=== PATIENT | female | born 1985 | race Native Hawaiian/Other Pacific Islander ===

== ENCOUNTER 2020-03-03 09:13 | Emergency (ER) | payer OTHER ==
[2020-03-03 09:48] LABS: BILIRUBIN,URINE NEGATIVE (NEGATIVE); GLUCOSE, URINE (UA) NEGATIVE (NEGATIVE); KETONES,URINE (UA) NEGATIVE (NEGATIVE); LEUKOCYTE ESTERASE, URINE NEGATIVE (NEGATIVE); NITRITE,URINE NEGATIVE (NEGATIVE); OCCULT BLOOD,URINE NEGATIVE (NEGATIVE); PROTEIN,URINE NEGATIVE (NEGATIVE); UROBILINOGEN,URINE 0.2 (NORMAL) E.U./dL (NORMAL)
[2020-03-03 09:51] LABS: CLARITY,URINE CLEAR (CLEAR)
--- NOTE | 2020-03-03 09:58 | ED Physician Documentation ---
History of Present Illness - Stated complaint Stated Complaint: LLQ PAIN/ 8-9 WK OB - Chief complaint Chief Complaint: Abd Pain - History obtained from History obtained from: Patient - History of Present Illness Timing: How many days ago (2-3) Pain level max: 3 Pain level now: 0 - Additonal information Additional information: 34-year-old female, 2 para 1 presents to the emergency department stating that she is approximately 8 to 9 weeks . Has left pelvic pain. She states that she will often get a "lightning like pain" that shoots down her left leg. Lasts for half a second or less. Nothing makes it better or worse. Had some small vaginal bleeding last week. Has not had an ultrasound. No back pain. Review of Systems Ten Systems: 10 systems reviewed and negative Constitutional: denies: Fever, Chills Respiratory: denies: Cough GI: denies: Vomiting : denies: Dysuria, Frequency, Hesitancy Skin: denies: Rash Musculoskeletal: denies: Neck pain, Back pain Neurologic: denies: Focal weakness, Numbness, Headache PD PAST MEDICAL HISTORY - Past Medical History Past Medical History: Yes Cardiovascular: Hypertension Respiratory: None Neuro: None Endocrine/Autoimmune: Other GI: None : None HEENT: None Psych: None Musculoskeletal: None Derm: None Other Past Medical History: Gestaitional diabetes - Past Surgical History Past Surgical History: No - Present Medications Home Medications: Ambulatory Orders Medication Instructions Recorded Confirmed No122/Iron/Folic Acid 1 tab DAILY 03/03/20 03/03/20 [ Multi Tablet] - Allergies Allergies/Adverse Reactions: Allergies Allergy/AdvReac Type Severity Reaction Status Date / Time No Known Drug Allergies Allergy Verified 03/03/20 09:21 - Social History Does the pt smoke?: No Smoking Status: Former smoker Does the pt drink ETOH?: No Does the pt have substance abuse?: No - Immunizations Immunizations are current?: Yes PD ED PE NORMAL - Vitals Vital signs reviewed: Yes - General General: Alert and oriented X 3, No acute distress - HEENT HEENT: Moist mucous membranes - Neck Neck: Supple, no meningeal sign - Cardiac Cardiac: RRR - Respiratory Respiratory: No respiratory distress, Clear bilaterally - Abdomen Abdomen: Soft, Non tender, Non distended - Derm Derm: Warm and dry - Extremities Extremities: No edema, No calf tenderness / cord - Neuro Neuro: Alert and oriented X 3 - Psych Psych: Normal mood, Normal affect Results - Vitals Vitals: Vital Signs - 24 hr 03/03/20 03/03/20 03/03/20 09:16 11:20 12:39 Temperature 36.5 C 36.8 C Heart Rate 78 59 L 60 Respiratory 16 18 19 Rate Blood Pressure 145/74 H 119/80 118/79 O2 Saturation 98 99 98 Oxygen O2 Source Room air - Labs Labs: Laboratory Tests 03/03/20 03/03/20 03/03/20 09:28 09:51 09:51 WBC 9.9 RBC 5.00 Hgb 15.1 Hct 44.4 MCV 88.8 MCH 30.2 MCHC 34.0 RDW 12.1 Plt Count 254 MPV 9.1 Neut # (Auto) 6.5 Lymph # (Auto) 2.6 Lake # (Auto) 0.7 Eos # (Auto) 0.1 Baso # (Auto) 0.1 Absolute Nucleated RBC 0.00 Nucleated RBC % 0.0 Sodium 136 Potassium 3.5 Chloride 101 Carbon Dioxide 23 Anion Gap 12.0 BUN 12 Creatinine 0.5 Estimated GFR (MDRD) 141 Glucose 121 H Calcium 10.0 Total Bilirubin 0.8 AST 21 ALT 25 Alkaline Phosphatase 58 Total Protein 7.9 Albumin 4.2 Globulin 3.7 Albumin/Globulin Ratio 1.1 Lipase 31 HCG, Quant Urine Color YELLOW Urine Clarity CLEAR Urine pH 6.0 Ur Specific Saxon >=1.030 H Urine Protein NEGATIVE Urine Glucose (UA) NEGATIVE Urine Ketones NEGATIVE Urine Occult Blood NEGATIVE Urine Nitrite NEGATIVE Urine Bilirubin NEGATIVE Urine Urobilinogen 0.2 (NORMAL) Ur Leukocyte Esterase NEGATIVE Ur Microscopic Review NOT INDICATED Urine Culture Comments NOT INDICATED 03/03/20 09:51 WBC RBC Hgb Hct MCV MCH MCHC RDW Plt Count MPV Neut # (Auto) Lymph # (Auto) Lake # (Auto) Eos # (Auto) Baso # (Auto) Absolute Nucleated RBC Nucleated RBC % Sodium Potassium Chloride Carbon Dioxide Anion Gap BUN Creatinine Estimated GFR (MDRD) Glucose Calcium Total Bilirubin AST ALT Alkaline Phosphatase Total Protein Albumin Globulin Albumin/Globulin Ratio Lipase HCG, Quant 92505.00 Urine Color Urine Clarity Urine pH Ur Specific Saxon Urine Protein Urine Glucose (UA) Urine Ketones Urine Occult Blood Urine Nitrite Urine Bilirubin Urine Urobilinogen Ur Leukocyte Esterase Ur Microscopic Review Urine Culture Comments - Rads (name of study) pelvic US Radiology: Prelim report reviewed, EMP read contemporaneously, See rad report PD MEDICAL DECISION MAKING - ED course Complexity details: reviewed results, re-evaluated patient, considered differential, d/w patient ED course: 34-year-old female with left pelvic pain. She is approximately 6 weeks 4 days . There is no pole or yolk sac visualized, possible early versus blighted ovum. No evidence of ectopic. No pain here. We will have her follow-up with her doctor for further care. No evidence of artery dissections. No neuro deficits. Patient counseled regarding signs and symptoms for which I believe and urgent re-evaluation would be necessary. Patient with good understanding of and agreement to plan and is comfortable going home at this time This document was made in part using voice recognition software. While efforts are made to proofread this document, sound alike and grammatical errors may occur. 1. There is an intrauterine gestational sac. No pole or yolk sac is visualized. Based on the MGSD, the estimated gestational age is 6 weeks 4 days. Differential diagnoses include early intrauterine versus blighted ovum. Recommend clinical correlation and follow-up. Departure - Departure Disposition: 01 Home, Self Care Clinical Impression: Pelvic pain affecting Qualifiers: Trimester: first trimester Qualified Code(s): O26.891 - Other specified related conditions, first trimester Condition: Good Instructions: ED Care Follow-Up: your,doctor in 3-4 days [Other] Comments: You should follow-up with your doctor in 3 to 4 days to repeat your hCG level. It is at 63,140 today. Your ultrasound will likely need to be repeated in 1 to 2 weeks as well. Return if you worsen. 1. There is an intrauterine gestational sac. No pole or yolk sac is visualized. Based on the MGSD, the estimated gestational age is 6 weeks 4 days. Differential diagnoses include early intrauterine versus blighted ovum. Recommend clinical correlation and follow-up. Discharge Date/Time: 03/03/20 12:43
[2020-03-03 10:12] LABS: BASOPHILS # (AUTO) 0.1 10^3/uL (0.0-0.1); BASOPHILS % (AUTO) 0.5 %; EOSINOPHILS # (AUTO) 0.1 10^3/uL (0.0-0.7); EOSINOPHILS % (AUTO) 0.5 %; HGB - HEMOGLOBIN 15.1 g/dL (12.0-16.0); LYMPHOCYTES # (AUTO) 2.6 10^3/uL (1.5-3.5); MEAN CORPUSCULAR HEMOGLOBIN 30.2 pg (27.0-31.0); MEAN CORPUSCULAR VOLUME 88.8 fL (81.0-99.0); MEAN PLATELET VOLUME 9.1 fL (7.9-10.8); MONOCYTES # (AUTO) 0.7 10^3/uL (0.0-1.0); MONOCYTES % (AUTO) 6.7 %; NEUTROPHILS # (AUTO) 6.5 10^3/uL (1.5-6.6); NEUTROPHILS % (AUTO) 65.9 %; PLT - PLATELET COUNT 254 10^3/uL (130-450); RED CELL DISTRIBUTION WIDTH 12.1 % (12.0-15.0); WHITE BLOOD COUNT 9.9 x10^3/uL (4.8-10.8)
[2020-03-03 10:32] LABS: ALBUMIN 4.2 g/dL (3.2-5.5); ALBUMIN/GLOBULIN RATIO 1.1 (1.0-2.2); BILIRUBIN,TOTAL 0.8 mg/dL (0.2-1.0); CREATININE 0.5 mg/dL (0.4-1.0); TOTAL PROTEIN 7.9 g/dL (6.7-8.2)
--- NOTE | 2020-03-03 12:18 | Ultrasound Report ---
PROCEDURE: OB First Trimester w/TV INDICATIONS: L pelvic pain, 8-9 weeks preg OUTSIDE/PRIOR DATING DATA: Last menstrual period (LMP): 01/05/2020. LMP-based estimated date of delivery (BECCA): 10/11/2020. First dating scan (date and location): This exam. Estimated date of delivery (BECCA) from first dating scan: n.a. TECHNIQUE: Real-time scanning was performed of the fetus and maternal pelvic organs, with image documentation. Endovaginal scanning was also performed to better visualize the fetus and maternal ovaries. COMPARISON: Not available. FINDINGS: There is a an intrauterine gas additional sac. Based on the mean sac dimension, the estima ihsan gestational age is 6 weeks 4 days. No pole or yolk sac is identified. Measurement variability in dating: +/- 4 weeks by LMP, +/- 7 days by mean sac diameter (use before 6 weeks gestation if crown-rump length not able to be measured), +/- 5 days by crown-rump length (6-12 weeks gestation). Maternal organs: Ovaries are grossly normal. Limited images through the kidneys demonstrate no hydr onephrosis. IMPRESSION: 1. There is an intrauterine gestational sac. No pole or yolk sac is visualized. Based on the MG SD, the estimated gestational age is 6 weeks 4 days. Differential diagnoses include early intrauterin e versus blighted ovum. Recommend clinical correlation and follow-up. Reviewed by: Asha Carrington MD on 03/03/2020 12:16 PM PST Approved by: Asha Carrington MD on 03/03/2020 12:16 PM PST Station ID: [id number]
[2020-03-03 12:40] VITALS: BP 118/79
== END 2020-03-03 12:43 | disposition home or self-care (01) ==
LOC: ED 09:13
DX: O26.891 Other specified pregnancy related conditions, first trimester (principal); R10.2 Pelvic and perineal pain; O10.911 Unspecified pre-existing hypertension complicating pregnancy, first trimester; O24.419 Gestational diabetes mellitus in pregnancy, unspecified control; Z3A.01 Less than 8 weeks gestation of pregnancy
CPT/HCPCS: 36415; 80053; 81001; 81003; 83690; 84702; 84703; 85025; 87086; 99284; 99285

== ENCOUNTER 2021-05-31 11:53 | Outpatient (CLI) | payer OTHER ==
[2021-05-31] MEDS ORDERED: GADOBUTROL 10 MMOL/10 ML VIAL ONE (13:40)
[2021-05-31] MEDS ORDERED: lidocaine 1% 20 ML MDV ONE (13:40)
--- NOTE | 2021-05-31 15:27 | MRI Report ---
PROCEDURE: Cervical Spine W/O INDICATIONS: PAIN IN LEFT SHOULDER TECHNIQUE: Noncontrast sagittal T1 spin echo and T2 fast spin echo, sagittal STIR, foraminal oblique sagittal T2 fast spin echo, and axial gradient echo or T2 fast spin echo through the cervical spine. COMPARISON: None. FINDINGS: Image quality: Excellent. Alignment and Curvature: There is normal bony alignment. Bone Marrow: Marrow demonstrates normal overall signal. Spinal Cord: Visualized spinal cord has normal size and signal. No cerebellar tonsillar herniation. Paraspinous Soft Tissues: No paravertebral masses. Prevertebral soft tissues are normal in thicknes s. C2-C3: Normal in appearance. C3-C4: Normal in appearance. C4-C5: Diffuse right paracentral disc bulge and uncovertebral hypertrophy cause mild right foraminal stenosis. The disc bulge indents the anterior thecal sac causing minimal central canal stenosis. The left foramen is patent. C5-C6: Diffuse right paracentral disc bulge indents the anterior thecal sac causing moderate central canal stenosis. The foramina are patent. C6-C7: Normal in appearance. C7-T1: Normal in appearance. IMPRESSION: 1. 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 2. No abnormal cord signal. Reviewed by: Johan Aleman on 05/31/2021 3:26 PM PST Approved by: Johan Aleman on 05/31/2021 3:26 PM PST Station ID: [id number]
== END 2021-05-31 11:54 | disposition home or self-care (01) ==
LOC: DI 11:53
PROVIDERS: ATTEND Internal Medicine
DX: M50.321 Other cervical disc degeneration at C4-C5 level (principal); M48.02 Spinal stenosis, cervical region

== ENCOUNTER 2021-06-28 12:12 | Outpatient (CLI) | payer OTHER ==
[2021-06-28] MEDS ORDERED: LIDOCAINE-MPF 1% 10 ML AMP ONE (12:26)
[2021-06-28] MEDS ORDERED: GADOBUTROL 7.5 MMOL/7.5 ML VIAL ONE (12:27)
[2021-06-28] MEDS ORDERED: IOTHALAMATE MEGLUMINE 50 ML VIAL ONE (12:27)
[2021-06-28] MEDS ORDERED: GADOBUTROL 7.5 MMOL/7.5 ML VIAL IVP ONE (13:17)
[2021-06-28] MEDS ORDERED: IOTHALAMATE MEGLUMINE 50 ML VIAL IVP ONE (13:18)
[2021-06-28] MEDS ORDERED: LIDOCAINE-MPF 1% 10 ML AMP SUBQ ONE (13:19)
--- NOTE | 2021-06-28 13:47 | XRAY Report ---
PROCEDURE: Arthrogram Needle Placement INDICATIONS: PAIN IN LEFT SHOULDER CONTRAST: Conray, 4 cc Gadavist, 0.2 cc FLUORO DOSAGE: 7.2 mGy FLUORO TIME: 0.3 min TECHNIQUE: The indications, alternatives, benefits, risks, and complications of the procedure were explained to the patient. Written informed consent was obtained and placed in the chart. The shoulder was examin ed fluoroscopically and a site for needle placement chosen for entry into the glenohumeral joint from an anterior approach. The skin was prepped and draped in the usual fashion, and 1% lidocaine infilt rated from skin down to joint capsule. A spinal needle was inserted into the glenohumeral joint, and a small amount of iodinated contrast media injected to confirm intra-articular placement of the need le tip. This was followed by approximately 12 ml of saline/gadolinium (20cc normal saline/0.2 gadoli nium) contrast solution. The needle was removed and a dressing was applied. The patient was given postprocedural instructions and sent to the MRI suite for imaging. FINDINGS: A single fluoroscopic spot image demonstrates intra-articular location of injected iodinated contrast . IMPRESSION: Successful fluoroscopically guided administration of iodinated contrast solution into the shoulder benny int for MR arthrogram. Reviewed by: Hilda Rodrigues MD on 06/28/2021 1:45 PM PDT Approved by: Hilda Rodrigues MD on 06/28/2021 1:45 PM PDT Station ID: [id number]
--- NOTE | 2021-06-28 16:38 | MRI Report ---
PROCEDURE: Arthrogram Shoulder LT INDICATIONS: PAIN IN LEFT SHOULDER CONTRAST: Dilute intra-articular gadolinium. TECHNIQUE: After the administration of 12 mL of dilute intra-articular Gadolinium contrast, oblique coronal T1 a nd T2 spin echo with fat saturation, oblique sagittal T1 spin echo with and without fat saturation, o blique sagittal T2 fast spin echo with fat saturation, axial T1 spin echo with fat saturation through the shoulder. COMPARISON: None. FINDINGS: Image quality: Excellent. Rotator cuff: There is mild T2 signal elevation throughout the supraspinatus and infraspinatus tendo ns at the humeral insertion sites extending the muscular tendinous junctions, indicating tendinopathy . The supraspinatus, infraspinatus, and subscapularis tendons appear intact throughout. No rotator c uff muscle atrophy on sagittal images. Bones and bursae: No bone marrow contusions or fractures. Mild acromioclavicular joint degeneration. The acromion demonstrates conventional anatomy, without an os acromiale. Capsule and soft tissues: The labrum and glenohumeral ligaments appear intact. The long head of the biceps tendon demonstrates normal location and morphology. The rotator interval appears normal, wit hout fibrosis. The coracohumeral ligament is of normal thickness. No intra-articular bodies. IMPRESSION: 1. Supraspinatus and infraspinatus tendinopathy. No rotator cuff tear. 2. Mild acromioclavicular joint osteoarthritis. Reviewed by: Richard Valdes MD on 06/28/2021 4:37 PM PDT Approved by: Richard Valdes MD on 06/28/2021 4:37 PM PDT Station ID: [id number]
== END 2021-06-28 12:13 | disposition home or self-care (01) ==
LOC: DI 12:12
PROVIDERS: ATTEND Internal Medicine
DX: M75.92 Shoulder lesion, unspecified, left shoulder (principal); M19.012 Primary osteoarthritis, left shoulder
CPT/HCPCS: 23350; 73222; 77002; A9585; Q9961